=== PATIENT | male | born 1995 | race Caucasian/White ===

== ENCOUNTER 2018-11-30 12:17 | Outpatient (CLI) | payer BC, SELFPAY ==
[2018-11-30 12:41] LABS: HCT 44.8 % (40.0-50.0); HGB 15.3 g/dL (13.5-17.5); Mean Corp. HGB Concentration 34.2 g/dL (32.0-36.0); Mean Corpuscular Hemoglobin 30.9 pg (27.0-33.0); Mean Corpuscular Volume 90.5 fL (80-95); Mean Platelet Volume 9.8 fL (8.0-11.0); Platelet Count 264 x1000/uL (130-400); RBC 4.95 m/cumm (4.50-6.00); RBC Distribution Width 12.7 % (11.8-14.1); White Blood Cell Count 4.97 k/cumm (4.4-10.8)
[2018-11-30 14:29] LABS: ALT 48 U/L (16-63); AST 22 U/L (15-37); Albumin 4.5 g/dL (3.4-5.0); Alkaline Phosphatase 74 U/L (46-116); BUN 11 mg/dL (7-18); Bilirubin, Total 0.3 mg/dL (0.2-1.0); Calcium 9.2 mg/dL (8.5-10.1); Chloride 104 mmol/L (98-107); Glucose 86 mg/dL (70-100); Potassium 4.7 mmol/L (3.5-5.1); Sodium 142 mmol/L (136-145); Total Protein 7.1 g/dL (6.4-8.2)
[2018-12-01 16:32] LABS: Lamotrigine 14.2 mcg/mL (2.5 - 15.0)
== END 2018-11-30 12:37 ==
PROVIDERS: PCP General Practice; Visit Provider Psychiatry & Neurology Neurology
DX: G40.309 Generalized idiopathic epilepsy and epileptic syndromes, not intractable, without status epilepticus (principal); Z51.81 Encounter for therapeutic drug level monitoring
CPT/HCPCS: 36415; 80053; 80175; 85027

== ENCOUNTER 2021-03-21 08:35 | Emergency (ER) | payer OTHER, SELFPAY ==
[2021-03-21] VITALS (17 sets, daily range): BP systolic 127–156; BP diastolic 64–76; PULSE 91–130; RESP 16–43; TEMP 37.1; O2SAT 94–99
--- NOTE | 2021-03-21 08:49 | W.ED.GENAD ---
Discharge Plan Disposition Patient Disposition: HOME Condition: Improving Discharge Details Clinical Impression: Primary generalized epilepsy Primary Care Provider: Adrian Cisse ED Provider: Ochoa Garza Home Meds and New Rx's Prescriptions: Continued clonazepam 0.5 mg tablet,disintegrating See Rx Instructions PO PRN Qty: 12 2RF Rx Instructions: Take 1 or 2 tab prn seizure lasting longer than 5min or for break-thru blanking out seizures; ODT only! lamotrigine 200 mg tablet 400 mg PO BID Qty: 360 3RF loratadine 10 MG tablet,disintegrating 10 mg PO PRN 0RF Discharge Instructions Instructions: Recurrent Seizures in Adults (ED) Additional Instructions: No further driving until cleared by Dr. Abbott. Please call her office for a follow-up appointment and to review your Lamictal level. Home to rest today. Small, frequent sips of fluids to maintain good hydration. Continue your efforts to decrease the amount of alcohol you use. Return to the ER for any concerns. Medical Decision Making 26-year-old male with a history of primary generalized epilepsy. He presents via EMS after having a single, generalized tonic-clonic seizure lasting 2 minutes with amelioration in the field. He did vomit x1. He was reported to be slightly confused and postictal for EMS. Patient was given oral Zofran and transported to the emergency department. By the time of arrival he is awake, alert, no acute distress. Tachycardic with a pulse of 129. He states he drank 10 beers last night which is unusual for him states he has been taking his Lamictal. No focal neurologic deficits, the patient is improved. I feel the alcohol is likely the provocative factor in him developing seizure today. Do not feel he requires CT scan of the head given total improvement. IV access established, screening labs with lamotrigine level obtained and patient given 1 L normal saline. Patient's labs note mild dehydration, otherwise reassuring. Lamictal is a send out. Discussed with him he should not drive until cleared again by Dr. Abbott. He will follow up with her for review of his Lamictal level and continue current medications. He is stable for discharge. HPI General Date/Time Provider Initiated Documentation: 03/21/21 08:39. HPI Narrative: Chief complaint of seizure. Patient arrives via EMS complaining of single generalized tonic-clonic seizure lasting 2 minutes. No tongue biting and no loss of consciousness. He is now improved. No exacerbating or ameliorating factors. Described as mild to moderate. Now improved. He was given Zofran on route by EMS. Related Data Home Medications Medication Instructions Recorded Confirmed loratadine 10 mg disintegrating 10 mg PO PRN tab-cap 10/24/15 03/21/21 tablet clonazepam 0.5 mg disintegrating See Rx Instructions PO PRN #12 02/21/20 03/21/21 tablet tab-cap NS lamotrigine 200 mg tablet 400 mg PO BID #360 tab 02/19/21 03/21/21 Previous Rx's Medication Instructions Recorded clonazepam 0.5 mg disintegrating See Rx Instructions PO PRN #12 02/21/20 tablet tab-cap NS lamotrigine 200 mg tablet 400 mg PO BID #360 tab 02/19/21 Allergies Allergy/AdvReac Type Severity Reaction Status Date / Time shellfish derived Allergy Swelling/Ed Verified 03/21/21 08:50 eliecer codeine AdvReac Hyperactive Verified 03/21/21 08:50 Pertussis Vaccines AdvReac Contraindicated Verified 03/21/21 08:50 for those with epilepsy Review of Systems Narrative: No recent illness. Denies headache. Drank 10 beers last night which is unusual. Has been taking his Lamictal. Not immunized against COVID-19. 8 systems reviewed and otherwise negative PFSH All Active Problems (Updated 03/21/21 @ 09:56 by Ochoa Garza MD) Primary generalized epilepsy (Acute 05/16/14) Medical History (Updated 03/21/21 @ 09:56 by Ochoa Garza MD) Epilepsy ETOH abuse binge drinker; h/o 12 pack daily drinking Seasonal allergies Surgical History No significant past surgical history Family History Father Hypertension Depression Anxiety Mother Anxiety Depression Asthma Sister Depression Maternal Grandmother No problems noted. Other Alcohol abuse Diabetes Heart disease Oral cancer Skin cancer Social History Smoking/Tobacco Use Status: Never Smokeless tobacco user: chewing tobacco Smoking risk assessment performed?: Yes Alcohol Intake: current Alcohol Intake frequency: a few times a week Alcohol type: beer Drug use: Daily Substance use type: marijuana Adopted: No Caregiver/Support person: No Foster care: No Household members: family Housing: house Do you need help understanding health information?: Rarely current occupation: Self-Employed Sexually active: Yes Do you think of yourself as: straight/heterosexual Current gender identity: male Do you feel safe in your relationship?: Yes Exam Narrative Exam Narrative: GEN: awake, alert, oriented 3. Pleasant, well groomed, interactive. HEAD: Normocephalic, atraumatic ENT: Mucous membranes dry, oropharynx unremarkable, External ear exam unremarkable EYES: PERRL, EOMI NECK: Full ROM, no JILLIAN, no menigismus CHEST/RESP: Nontender, clear to auscultation bilateral, no wheeze/rhonchi/rales CARDIOVASCULAR: Regular and tachycardic, no murmur, rub nataliia. 2+ Rad pulse bilateral ABDOMEN: Soft, nontender, no mass. +Bowel sounds EXT: Full ROM, no edema, no rash Neuro: Grossly normal neurologic exam, conversant, interactive. Psych: Speech fluent, thoughts congruent, affect normal
[2021-03-21] MEDS: Normal Saline 1,000 ML 1000 ML IV (08:50)
[2021-03-21 09:07] LABS: Abs Immature Grans 0.04 10^3/uL (0.0-0.06); Absolute Basophil Count 0.03 10^3/uL (0.0-0.2); Absolute Eosinophil Count 0.18 10^3/uL (0.0-0.7); Absolute Lymphocyte Count 2.42 10^3/uL (1.2-3.4); Absolute Monocyte Count 0.59 10^3/uL (0.1-0.8); Basophils % 0.4; Eosinophils % 2.5; Immature Grans % 0.6; Lymphocytes % 34.2; MCH 30.9 pg (27.0-33.0); MCHC 33.3 % (32.0-36.0); MCV 92.7 fL (80-95); MPV 10.1 fL (8.0-11.0); Monocytes % 8.3; Nucleated RBC 0 %; RDW 11.8 % (11.8-14.1); RDW-SD 40.6 fL
[2021-03-21 09:18] LABS: ALT 41 U/L (16-63); AST 32 U/L (15-37); Albumin 5.2 g/dL (3.4-5.0); Alkaline Phosphatase 81 U/L (46-116); Anion Gap 18.3 mmol/L (3-11); BUN 12 mg/dL (7-18); Bilirubin, Total 0.3 mg/dL (0.2-1.0); CO2 20.7 mmol/L (21.0-32.0); CREATININE 1.4 mg/dL (0.70-1.30); Calcium 9.3 mg/dL (8.5-10.1); Chloride 100 mmol/L (98-107); Glucose 80 mg/dL (74-106); Sodium 139 mmol/L (136-145); Total Protein 8.6 g/dL (6.4-8.2)
[2021-03-21 09:37] LABS: Absolute Neutrophil Count 3.82 10^3/uL (1.2-6.7); Diff Comment Diff Reviewed; Platelet Count 328 10^3/uL (130-400); Polychromasia Present; WBC 7.07 10^3/uL (4.4-10.8)
[2021-03-23 14:03] LABS: Lamotrigine 10.4 mcg/mL (2.5 - 15.0)
== END 2021-03-21 10:13 | disposition home or self-care (01) ==
PROVIDERS: Emergency Provider Emergency Medicine; PCP Family Medicine
DX: G40.409 Other generalized epilepsy and epileptic syndromes, not intractable, without status epilepticus (principal); R00.0 Tachycardia, unspecified; F10.10 Alcohol abuse, uncomplicated; Z79.899 Other long term (current) drug therapy
CPT/HCPCS: 36415; 80053; 80175; 96360; 99284; 85025; 99283

== ENCOUNTER 2021-04-25 01:36 | Outpatient (CLI) | payer OTHER, SELFPAY ==
[2021-04-29 13:11] LABS: Lamotrigine 10.9 mcg/mL (2.5 - 15.0)
== END 2021-04-25 01:37 | disposition home or self-care (01) ==
LOC: LBO 01:36
PROVIDERS: PCP Family Medicine; Visit Provider Psychiatry & Neurology Neurology
DX: G40.309 Generalized idiopathic epilepsy and epileptic syndromes, not intractable, without status epilepticus (principal)
CPT/HCPCS: 36415; 80175

== ENCOUNTER 2023-04-12 07:25 | Outpatient (CLI) | payer OTHER, SELFPAY ==
[2023-04-12 15:47] LABS: Abs Immature Grans 0.01 10^3/uL (0.0-0.06); Absolute Basophil Count 0.03 10^3/uL (0.0-0.2); Absolute Eosinophil Count 0.25 10^3/uL (0.0-0.7); Absolute Lymphocyte Count 2.44 10^3/uL (1.2-3.4); Absolute Monocyte Count 0.37 10^3/uL (0.1-0.8); Absolute Neutrophil Count 3.68 10^3/uL (1.2-6.7); Basophils % 0.4; Eosinophils % 3.7; HCT 43.8 % (40.0-50.0); HGB 15.1 g/dL (13.5-17.5); Immature Grans % 0.1; MCH 31.2 pg (27.0-33.0); MCHC 34.5 % (32.0-36.0); MCV 91 fL (80-95); MPV 9.8 fL (8.0-11.0); Monocytes % 5.5; Neutrophils % 54.3; Platelet Count 246 10^3/uL (130-400); RBC 4.84 10^6/uL (4.36-5.78); RDW-SD 40.1 fL; WBC 6.78 10^3/uL (4.4-10.8)
[2023-04-12 16:25] LABS: ALT 32 U/L (16-63); AST 22 U/L (15-37); Albumin 4.3 g/dL (3.4-5.0); Alkaline Phosphatase 70 U/L (46-116); BUN 12 mg/dL (7-18); Bilirubin, Total 0.2 mg/dL (0.2-1.0); CREATININE 1.4 mg/dL (0.70-1.30); Calcium 8.8 mg/dL (8.5-10.1); Chloride 103 mmol/L (98-107); Estimated GFR 70.65 (mL/min/1.73m2); Glucose 109 mg/dL (74-106); Potassium 3.9 mmol/L (3.5-5.1); Sodium 142 mmol/L (136-145); Total Protein 6.9 g/dL (6.4-8.2)
[2023-04-14 11:45] LABS: Lamotrigine 8.4 mcg/mL (3.0-15.0)
== END 2023-04-12 07:26 ==
LOC: LBO 04-16 07:31
PROVIDERS: PCP Family Medicine; Visit Provider Psychiatry & Neurology Neurology
DX: G40.309 Generalized idiopathic epilepsy and epileptic syndromes, not intractable, without status epilepticus (principal)
CPT/HCPCS: 36415; 80053; 80175; 85025